=== PATIENT | male | born 1945 | race Caucasian/White ===

== ENCOUNTER 2020-12-03 10:18 | Inpatient (IN) | payer OTHER ==
[2020-12-03 11:02] LABS: Urine Blood 1+ (Negative); Urine Glucose Trace (Negative); Urine Protein Negative (Negative)
[2020-12-03] MEDS ORDERED: VANCOMYCIN 1 GM/VIAL ONE (11:11)
[2020-12-03] MEDS ORDERED: NA CHLORIDE 0.9% 250 ML ONE (11:11)
[2020-12-03] MEDS ORDERED: NA CHLORIDE 0.9% 3,000 ML ONE (11:11)
[2020-12-03] MEDS ORDERED: NA CHLORIDE 0.9% 100 ML ONE ×2 (11:11→22:29)
[2020-12-03] MEDS ORDERED: CEFEPIME 1 GM/VIAL ONE (11:11)
[2020-12-03] MEDS ORDERED: FAMOTIDINE 20 MG/2 ML VIAL IV ONE (11:11)
--- NOTE | 2020-12-03 11:14 | ER ---
Nurse's Notes [facility] Name: Alfredo Lee Age: 74 yrs Sex: Male : 1945 Arrival Date: 12/03/2020 Time: 10:19 Bed 6 Private MD: Diagnosis: Chronic atrial fibrillation-in RVR;Cellulitis and acute lymphangitis of other parts of limb-LEFT LOWER EXTREMITY;Weakness;Altered mental status, unspecified;Sepsis, unspecified organism Presentation: 12/03 10:26 Chief complaint: EMS states: "Had an ultrasound on the left leg last week it was tw5 negative for any clotting. Over the past week it has gotten worse. family reports that he has become a little confused. ". Coronavirus screen: Vaccine status: Patient reports receiving the 2nd dose of the covid vaccine. Date April 25, 2020. Ebola Screen: Patient negative for fever greater than or equal to 101.5 degrees Fahrenheit, and additional compatible Ebola Virus Disease symptoms Patient denies exposure to infectious person. Patient denies travel to an Ebola-affected area in the 21 days before illness onset. Initial Sepsis Screen: Does the patient meet any 2 criteria? RR > 20 per min. Altered Mental Status. HR > 90 bpm. Yes Does the patient have a suspected source of infection? Yes: Skin breakdown/wound. Risk Assessment: Do you want to hurt yourself or someone else? Patient reports no desire to harm self or others. Onset of symptoms was December 03, 2020. 10:26 Method Of Arrival: EMS: [facility] tw5 10:26 Acuity: VICKY 3 tw5 10:30 Acuity: VICKY 2 iw Triage Assessment: 10:30 General: Appears uncomfortable, ill, Behavior is cooperative. Pain: Complains of pain tw5 in left che Pain currently is 7 out of 10 on a pain scale. Historical: - Allergies: 10:30 No Known Allergies; tw5 - Home Meds: 10:30 Xarelto 15 mg oral tab 1 tab once daily [Active]; metoprolol tartrate 75 mg Oral tab 1 tw5 tab 2 times per day [Active]; - PMHx: 10:30 Diabetes mellitus; Atrial fibrillation; tw5 - PSHx: 10:30 Carotid endarterectomy; Coronary Angioplasty; Coronary artery bypass graft; tw5 - Social history:: Smoking status: Patient denies any tobacco usage or history of. - Family history:: not pertinent. Screenin:38 Abuse screen: Denies threats or abuse. Denies injuries from another. Nutritional tw5 screening: No deficits noted. Tuberculosis screening: No symptoms or risk factors identified. Fall Risk Fall in past 12 months (25 points). Secondary diagnosis (15 points) IV access (20 points). Ambulatory Aid- None/Bed Rest/Nurse Assist (0 pts). Gait- Impaired (20 pts.). Mental Status- Overestimates/Forgets Limitations (15 pts.). Assessment: 10:39 General: Appears uncomfortable, ill, obese, Behavior is cooperative, appropriate for tw5 age. Neuro: Level of Consciousness is awake, alert, Oriented to person, place, time, situation. Cardiovascular: Reports None Heart tones S1 S2 Rhythm is atrial fibrillation with rapid ventricular response. Respiratory: Airway is patent Trachea midline Respiratory effort is shallow, Respiratory pattern is tachypnea. GI: Reports vomiting. 11:00 Reassessment: Patient appears in no apparent distress at this time. tw5 Vital Signs: 10:26 BP 152 / 103; Pulse 138; Resp 24; Temp 98.4(TE); Weight 114.76 kg; Height 6 ft. 3 in. tw5 (190.50 cm); Pain 7/10; 10:40 BP 114 / 81; Pulse 134; Resp 26; Pulse Ox 92% on R/A; Pain 7/10; tw5 11:00 BP 150 / 102; Pulse 128; Resp 17; Pulse Ox 98% on R/A; Pain 7/10; tw5 12:16 BP 124 / 88; Pulse 111; Resp 18; Pulse Ox 95% on R/A; Pain 7/10; tw5 12:33 BP 136 / 97; Pulse 110; Resp 21; Pulse Ox 96% on R/A; Pain 7/10; tw5 10:26 Body Mass Index 31.62 (114.76 kg, 190.50 cm) tw5 10:26 left leg tw5 ED Course: 10:19 Patient arrived in ED. tw5 10:19 Mando Yoo MD is Attending Physician. [facility] 10:22 Nicole Barry is Primary Nurse. tw5 10:29 Triage completed. tw5 10:30 Arm band placed on left wrist. tw5 10:34 Patient has correct armband on for positive identification. Placed in gown. Bed in low mh5 position. Call light in reach. Side rails up X2. Adult w/ patient. Warm blanket given. test developer on. Pulse ox on. NIBP on. 10:34 Initial lab(s) drawn, by ED staff, sent to lab. EKG done, COVID swab sent to lab. mh5 10:35 Awaiting lab results. tw5 10:35 CBC with Automated Diff Sent. mh5 10:35 Liver (Hepatic) Function Sent. mh5 10:35 Basic Metabolic Panel Sent. mh5 10:35 TSH Sent. mh5 10:35 Inserted saline lock: 20 gauge in right hand, using aseptic technique. tw5 10:36 TSH Sent. mh5 10:36 Amylase, Serum Sent. mh5 10:36 Blood Culture Adult (2) Sent. mh5 10:36 CPK Sent. 5 10:36 Ckmb Sent. mh5 10:36 Lactate Sent. mh5 10:36 Lipase Sent. mh5 10:36 Procalcitonin Sent. mh5 10:36 Ptt, Activated Sent. mh5 10:36 Urine Microscopic Only Sent. mh5 10:36 Basic Metabolic Panel Sent. mh5 10:36 CBC with Diff Sent. mh5 10:36 LFT's Sent. mh5 10:37 Magnesium Sent. mh5 10:37 NT PRO-BNP Sent. mh5 10:37 PT-INR Sent. mh5 10:37 Troponin (emerg Dept Use Only) Sent. mh5 10:41 Amylase, Serum Sent. tw5 10:42 CBC with Automated Diff Sent. tw5 10:54 XRAY Chest (1 view) In Process Unspecified. EDMS 11:11 Varun Redding MD is Hospitalizing Provider. aidee 11:11 TSH Sent. tw5 11:11 Ptt, Activated Sent. tw5 11:12 Procalcitonin Sent. tw5 11:12 Lipase Sent. tw5 11:12 Lactate Sent. tw5 11:12 Ckmb Sent. tw5 11:12 CPK Sent. tw5 11:12 Amylase, Serum Sent. tw5 11:12 Inserted saline lock: 20 gauge in left hand, using aseptic technique. tw5 11:23 Sriram Mcadams is Hospitalizing Provider. aidee 11:50 CT Head Brain wo Cont In Process Unspecified. EDMS 12:04 Patient moved back from [place]. tw5 12:52 No provider procedures requiring assistance completed. Patient admitted, IV remains in tw5 place. Administered Medications: 11:03 Drug: Pepcid (famotidine) 20 mg Route: IVP; Site: right hand; tw5 12:51 Follow up: Response: No adverse reaction tw5 11:05 Drug: Cefepime 2 grams Route: IVPB; Rate: 200 ml/hr; Infused Over: 30 mins; Site: right tw5 hand; 12:51 Follow up: Response: No adverse reaction; IV Status: Completed infusion tw5 11:06 Drug: vancoMYCIN 1 grams Route: IVPB; Infused Over: 2 hrs; Site: left hand; tw5 12:51 Follow up: IV Status: Infusion continued upon admission tw5 11:12 Drug: NS 0.9% (30 ml/kg) 30 ml/kg Route: IV; Rate: bolus; Site: right hand; tw5 12:51 Follow up: IV Status: Infusion continued upon admission tw5 12:07 Drug: Lopressor (metoprolol TARTRATE) 50 mg Route: PO; tw5 12:51 Follow up: Response: No adverse reaction tw5 12:11 Drug: Digoxin 0.5 mg Route: IVP; Site: right hand; tw5 12:50 Follow up: Response: No adverse reaction tw5 12:14 Drug: Lopressor (metoprolol) 2.5 mg Route: IVP; Site: right hand; tw5 12:50 Follow up: Response: No adverse reaction tw5 12:33 Drug: Lopressor (metoprolol) 2.5 mg Route: IVP; Site: right hand; tw5 12:50 Follow up: Response: No adverse reaction tw5 Outcome: 11:13 Decision to Hospitalize by Provider. aidee 12:52 Admitted to Med/surg accompanied by tech, family with patient, via stretcher, room 228, tw5 with chart, Report called to LESLIE RICO 12:52 Condition: stable 12:52 Instructed on the need for admit. 12:58 Patient left the ED. tw5 Signatures: Dispatcher [employer] EDMando Whittaker MD MD cha Williams, Irene, RN RN iw Martinez, [facility] Nicole Barry tw5 Corrections: (The following items were deleted from the chart) 11:04 10:35 CORONAVIRUS+MR.LAB.KINGSLEY drawn and sent. mh5 EDMS 11:04 10:42 CORONAVIRUS+MR.LAB.BRJuan Pablo drawn and sent. tw5 EDMS
--- NOTE | 2020-12-03 11:14 | RAD REPORT ---
EXAM DESCRIPTION: RAD - Chest Single View - 12/03/2020 10:55 am CLINICAL HISTORY: COUGH Chest pain. COMPARISON: No comparisons FINDINGS: Portable technique limits examination quality. Mild bilateral interstitial prominence could represent interstitial pulmonary edema or viral infectio n. The heart is significantly enlarged in size. Moderate hiatal hernia.
--- NOTE | 2020-12-03 11:14 | EDPHYS ---
Physician Documentation [facility] Name: Alfredo Lee Age: 74 yrs Sex: Male : 1945 Arrival Date: 12/03/2020 Time: 10:19 Bed 6 Private MD: ED Physician Mando Yoo HPI: 12/03 11:06 This 74 yrs old Male presents to ER via EMS with complaints of weakness, red aidee leg and confusion. 11:07 The patient presents with decreased range of motion, pain, swelling, tenderness. The aidee complaints affect the lateral aspect of left calf, left lateral ankle, left calf, left Achilles, medial aspect of left calf, left medial ankle, left che and anterior aspect of left ankle. Context: The problem was sustained at an unknown site. Onset: The symptoms/episode began/occurred 2 day(s) ago. Modifying factors: The symptoms are alleviated by nothing. the symptoms are aggravated by nothing. Associated signs and symptoms: Pertinent positives: calf tenderness, fever, swelling, warmth, of the lateral aspect of left calf, left lateral ankle, left calf, left Achilles, medial aspect of left calf, left medial ankle, left che and anterior aspect of left ankle. Severity of symptoms: At their worst the symptoms were moderate, in the emergency department the symptoms are unchanged. The patient has experienced similar episodes in the past, a few times. Historical: - Allergies: 10:30 No Known Allergies; tw5 - Home Meds: 10:30 Xarelto 15 mg oral tab 1 tab once daily [Active]; metoprolol tartrate 75 mg Oral tab 1 tw5 tab 2 times per day [Active]; - PMHx: 10:30 Diabetes mellitus; Atrial fibrillation; tw5 - PSHx: 10:30 Carotid endarterectomy; Coronary Angioplasty; Coronary artery bypass graft; tw5 - Social history:: Smoking status: Patient denies any tobacco usage or history of. - Family history:: not pertinent. ROS: 11:07 Constitutional: Negative for fever, chills, and weight loss, Eyes: Negative for injury, aidee pain, redness, and discharge, ENT: Negative for injury, pain, and discharge, Neck: Negative for injury, pain, and swelling, Respiratory: Negative for shortness of breath, cough, wheezing, and pleuritic chest pain, Abdomen/GI: Negative for abdominal pain, nausea, vomiting, diarrhea, and constipation, Back: Negative for injury and pain, : Negative for injury, bleeding, discharge, and swelling, Psych: Negative for depression, anxiety, suicide ideation, homicidal ideation, and hallucinations, Allergy/Immunology: Negative for hives, rash, and allergies, Endocrine: Negative for neck swelling, polydipsia, polyuria, polyphagia, and marked weight changes, Hematologic/Lymphatic: Negative for swollen nodes, abnormal bleeding, and unusual bruising. 11:07 Cardiovascular: Positive for palpitations. 11:07 MS/extremity: Positive for decreased range of motion, erythema, pain, swelling, tenderness, of the left leg. 11:07 Neuro: Positive for altered mental status, weakness. Exam: 11:07 Head/Face: Normocephalic, atraumatic. Eyes: Pupils equal round and reactive to light, aidee extra-ocular motions intact. Lids and lashes normal. Conjunctiva and sclera are non-icteric and not injected. Cornea within normal limits. Periorbital areas with no swelling, redness, or edema. ENT: Nares patent. No nasal discharge, no septal abnormalities noted. Tympanic membranes are normal and external auditory canals are clear. Oropharynx with no redness, swelling, or masses, exudates, or evidence of obstruction, uvula midline. Mucous membranes moist. Neck: Trachea midline, no thyromegaly or masses palpated, and no cervical lymphadenopathy. Supple, full range of motion without nuchal rigidity, or vertebral point tenderness. No Meningismus. Chest/axilla: Normal chest wall appearance and motion. Nontender with no deformity. No lesions are appreciated. Respiratory: Lungs have equal breath sounds bilaterally, clear to auscultation and percussion. No rales, rhonchi or wheezes noted. No increased work of breathing, no retractions or nasal flaring. Abdomen/GI: Soft, non-tender, with normal bowel sounds. No distension or tympany. No guarding or rebound. No evidence of tenderness throughout. Back: No spinal tenderness. No costovertebral tenderness. Full range of motion. Male : Normal genitalia with no discharge or lesions. Neuro: Awake and alert, GCS 15, oriented to person, place, time, and situation. Cranial nerves II-XII grossly intact. Motor strength 5/5 in all extremities. Sensory grossly intact. Cerebellar exam normal. Normal gait. Psych: Awake, alert, with orientation to person, place and time. Behavior, mood, and affect are within normal limits. 11:07 Constitutional: The patient appears febrile, in obvious distress, mildly distressed. 11:07 ECG was reviewed by the Attending Physician. Vital Signs: 10:26 BP 152 / 103; Pulse 138; Resp 24; Temp 98.4(TE); Weight 114.76 kg; Height 6 ft. 3 in. tw5 (190.50 cm); Pain 7/10; 10:40 BP 114 / 81; Pulse 134; Resp 26; Pulse Ox 92% on R/A; Pain 7/10; tw5 11:00 BP 150 / 102; Pulse 128; Resp 17; Pulse Ox 98% on R/A; Pain 7/10; tw5 12:16 BP 124 / 88; Pulse 111; Resp 18; Pulse Ox 95% on R/A; Pain 7/10; tw5 12:33 BP 136 / 97; Pulse 110; Resp 21; Pulse Ox 96% on R/A; Pain 7/10; tw5 10:26 Body Mass Index 31.62 (114.76 kg, 190.50 cm) tw5 10:26 left leg tw5 MDM: 10:19 Patient medically screened. aidee 11:10 Differential diagnosis: contusion, abrasion, tendonitis. Data reviewed: vital signs, [facility] nurses notes, lab test result(s), EKG, radiologic studies, CT scan, plain films. Data interpreted: clinical dietitian: rate is 128 beats/min, rhythm is atrial fibrillation, Pulse oximetry: is not applicable for this patient encounter. on room air is 98 %. Test interpretation: by ED physician or midlevel provider: ECG, plain radiologic studies. Counseling: I had a detailed discussion with the patient and/or guardian regarding: the historical points, exam findings, and any diagnostic results supporting the discharge/admit diagnosis, lab results, radiology results, the need for further work-up and treatment in the hospital. 12/03 10:32 Order name: Basic Metabolic Panel [facility] 12/03 10:32 Order name: CBC with Diff [facility] 12/03 10:32 Order name: LFT's [facility] 12/03 10:32 Order name: Magnesium [facility] 12/03 10:32 Order name: NT PRO-BNP [facility] 12/03 10:32 Order name: PT-INR; Complete Time: 11:56 [facility] 12/03 10:32 Order name: Troponin (emerg Dept Use Only) [facility] 12/03 10:32 Order name: Amylase, Serum [facility] 12/03 10:32 Order name: Blood Culture Adult (2) [facility] 12/03 10:32 Order name: CPK [facility] 12/03 10:32 Order name: Ckmb [facility] 12/03 10:32 Order name: Lactate; Complete Time: 11:43 [facility] 12/03 10:32 Order name: Lipase [facility] 12/03 10:32 Order name: Procalcitonin; Complete Time: 12:37 [facility] 12/03 10:32 Order name: XRAY Chest (1 view); Complete Time: 11:30 [facility] 12/03 10:32 Order name: Ptt, Activated; Complete Time: 11:56 [facility] 12/03 10:32 Order name: Urine Microscopic Only; Complete Time: 12:37 [facility] 12/03 10:32 Order name: TSH [facility] 12/03 10:32 Order name: Basic Metabolic Panel [facility] 12/03 10:32 Order name: CBC with Automated Diff; Complete Time: 11:56 [facility] 12/03 10:32 Order name: Liver (Hepatic) Function [facility] 12/03 10:37 Order name: Glucose, Ancillary Testing; Complete Time: 11:04 [facility] 12/03 11:01 Order name: Urine Dipstick-Ancillary; Complete Time: 11:04 [facility] 12/03 11:06 Order name: CT Head Brain wo Cont; Complete Time: 12:37 [facility] 12/03 11:43 Order name: COVID-19/FLU A+B; Complete Time: 11:56 [facility] 12/03 10:32 Order name: EKG; Complete Time: 10:33 [facility] 12/03 10:32 Order name: Cardiac monitoring; Complete Time: 10:33 [facility] 12/03 10:32 Order name: EKG - Nurse/Tech; Complete Time: 10:33 [facility] 12/03 10:32 Order name: IV Saline Lock; Complete Time: 10:33 [facility] 12/03 10:32 Order name: Labs collected and sent; Complete Time: 10:37 [facility] 12/03 10:32 Order name: O2 Per Protocol; Complete Time: 10:33 [facility] 12/03 10:32 Order name: O2 Sat Monitoring; Complete Time: 10:33 [facility] 12/03 10:32 Order name: Accucheck; Complete Time: 10:33 [facility] 12/03 10:32 Order name: IV Saline Lock - Large Bore; Complete Time: :33 aidee 12/03 10:32 Order name: Urine Dipstick-Ancillary (obtain specimen); Complete Time: 11:02 [facility] EC: Rate is 132 beats/min. Rhythm is irregularly irregular. QRS [place] is Normal. IA interval aidee is normal. QRS interval is normal. QT interval is normal. No Q waves. T waves are Normal. No ST changes noted. Clinical impression: Atrial Fibrillation. Interpreted by me. Reviewed by me. Administered Medications: 11:03 Drug: Pepcid (famotidine) 20 mg Route: IVP; Site: right hand; tw5 12:51 Follow up: Response: No adverse reaction tw5 11:05 Drug: Cefepime 2 grams Route: IVPB; Rate: 200 ml/hr; Infused Over: 30 mins; Site: right tw5 hand; 12:51 Follow up: Response: No adverse reaction; IV Status: Completed infusion tw5 11:06 Drug: vancoMYCIN 1 grams Route: IVPB; Infused Over: 2 hrs; Site: left hand; tw5 12:51 Follow up: IV Status: Infusion continued upon admission tw5 11:12 Drug: NS 0.9% (30 ml/kg) 30 ml/kg Route: IV; Rate: bolus; Site: right hand; tw5 12:51 Follow up: IV Status: Infusion continued upon admission tw5 12:07 Drug: Lopressor (metoprolol TARTRATE) 50 mg Route: PO; tw5 12:51 Follow up: Response: No adverse reaction tw5 12:11 Drug: Digoxin 0.5 mg Route: IVP; Site: right hand; tw5 12:50 Follow up: Response: No adverse reaction tw5 12:14 Drug: Lopressor (metoprolol) 2.5 mg Route: IVP; Site: right hand; tw5 12:50 Follow up: Response: No adverse reaction tw5 12:33 Drug: Lopressor (metoprolol) 2.5 mg Route: IVP; Site: right hand; tw5 12:50 Follow up: Response: No adverse reaction tw5 Disposition Summary: 12/03/20 11:13 Hospitalization Ordered Hospitalization Status: Inpatient Admission aidee Location: Telemetry/MedSurg (Inpatient) aidee Condition: Fair aidee Problem: new aidee Symptoms: have improved aidee Bed/Room Type: Standard aidee Provider: Sriram Mcadams(12/03/20 11:24) aidee Room Assignment: 228(12/03/20 12:12) dw Diagnosis - Chronic atrial fibrillation - in RVR aidee - Cellulitis and acute lymphangitis of other parts of limb - LEFT LOWER EXTREMITY aidee - Weakness aidee - Altered mental status, unspecified aidee - Sepsis, unspecified organism aidee Forms: - Medication Reconciliation Form aidee - SBAR form aidee Signatures: Dispatcher [employer] EDMS Lucretia Larkin RN RN Mando Cohn MD MD cha Wood, Tiffany tw5 Corrections: (The following items were deleted from the chart) 11:04 10:33 CORONAVIRUS+MR.LAB.BRZ ordered. EDMS EDMS 11:24 11:13 Varun Redding cha aidee 11:39 11:04 Extrem Venous W Compression Meño+US.RAD.BRZ ordered. EDMS EDMS 12:12 11:13 aidee dw
[2020-12-03 11:34] LABS: Protime INR 1.72
[2020-12-03 11:35] LABS: Absolute Lymphocytes (CBC) 0.2 K/uL (0.7-4.9); Lymphocytes % 1.2 % (15.3-44.8); RBC Red Blood Cell Count 5.37 M/uL (4.33-5.43)
[2020-12-03 11:42] LABS: Basophils % 0.2 % (0-1.3); Hematocrit 45.1 % (39.6-49.0); MPV 9.5 fL (7.6-11.3)
[2020-12-03 11:43] LABS: SARS-COV-2 RT PCR NEGATIVE (NEGATIVE)
--- NOTE | 2020-12-03 12:10 | RAD REPORT ---
EXAM DESCRIPTION: CT - Head Brain Wo Cont - 12/03/2020 11:50 am CLINICAL HISTORY: DIZZINESS Headache, drowsiness COMPARISON: No comparisons TECHNIQUE: All CT scans are performed using dose optimization technique as appropriate and may inclu de automated exposure control or mA/KV adjustment according to patient size. FINDINGS: No intracranial hemorrhage, hydrocephalus or extra-axial fluid collection.Mild generalized brain atrophy is seen with mild periventricular and deep white matter chronic microvascular ischemic changes.No areas of brain edema or evidence of midline shift. The paranasal sinuses and mastoids are essentially clear. The calvarium is intact. IMPRESSION: No acute intracranial abnormality.
[2020-12-03 12:16] LABS: Urine Bacteria <20 /HPF (NONE SEEN); Urine RBC <5 /HPF (NONE SEEN)
[2020-12-03] MEDS ORDERED: DIGOXIN 0.25 MG/ML AMP ONE (12:27)
[2020-12-03] MEDS ORDERED: METOPROLOL TAR 50 MG TAB ONE (12:27)
[2020-12-03] MEDS ORDERED: METOPROLOL TARTRATE 5 MG/5 ML INJ IV ONE (12:27)
[2020-12-03] MEDS ORDERED: ONDANSETRON 4 MG/2 ML VIAL IV PRN (13:16)
[2020-12-03] MEDS ORDERED: ACETAMINOPHEN 500 MG TAB PO PRN (13:16)
[2020-12-03] MEDS ORDERED: VANCOMYCIN/NS 1 gm 1 GM/250 ML BAG IVPB SCH (13:16)
[2020-12-03] MEDS: NA CHLORIDE 0.9% 1,000 ML IV SCH ×2 (13:19→23:26)
[2020-12-03 13:30] VITALS: BMI 32.0
[2020-12-03 14:35] LABS: ALT/SGPT 26 U/L (12-78); AST/SGOT 15 U/L (15-37); Albumin 3.6 g/dL (3.4-5.0); Alkaline Phosphatase 53 U/L (45-117); Amylase 34 U/L (25-115); BUN Blood Urea Nitrogen 19 mg/dL (7-18); Bicarbonate 25 mmol/L (21-32); Bilirubin Direct 0.3 mg/dL (0-0.2); Bilirubin Total 1.3 mg/dL (0.2-1.0); Creatine Phosphokinase 119 U/L (39-308); Glucose Level 219 mg/dL (74-106); Lipase 74 U/L (73-393); Magnesium 1.6 mg/dL (1.8-2.4); NT PRO-BNP 1369 pg/mL (<450); Potassium 3.5 mmol/L (3.5-5.1); Protein, Total 6.6 g/dL (6.4-8.2); Sodium Level 145 mmol/L (136-145); Troponin (Emerg Dept Use Only) < 0.02 ng/mL (0.0-0.045)
[2020-12-03 14:39] LABS: CKMB Creatine Kinase MB 2.7 ng/mL (1.0-3.6)
--- NOTE | 2020-12-03 14:46 | P.PN ---
Subjective Date of Service: 12/03/20 Chief Complaint: Left leg swelling and redness, confusion 74-year-old gentleman with a history of chronic atrial fibrillation, chronic kidney disease and diabetes presented to the emergency department due to sudden onset of redness of the left leg which rapidly worsened over a period of 2 days. He developed confusion. No fever. Patient is vacationing with his and were at the beach. Spouse mentioned patient did not get into the ocean. He has small wound on the left che and she does not know how patient got the wound. Spouse reports patient has been worked up for immunosuppression disease and recently saw a law firm consultant. He developed hematoma involving his left gluteal area and thigh earlyn this year which lasted for about a week. Lactic acid elevated, he has mild leukocytosis, creatinine 1.4. Blood pressure is stable in the ED. Patient met criteria for sepsis with tachycardia, leukocytosis, elevated lactic acid and altered mental status. Sepsis protocol initiated. Patient admitted for further management. Review of Systems Other: No reported diarrhea or nausea or vomiting. No reported abdominal pain. Patient denies any chest pain or shortness of breath. Except as documented, all other systems reviewed and negative. Physical Examination - Vital Signs Temperature: 98.4 F Blood Pressure: 136/97 Pulse: 110 Respirations: 21 - Physical Exam General: Mild distress, Confused, Obese, Other (Irritable) HEENT: Atraumatic, Normocephalic, PERRLA, Mucous membr. moist/pink, EOMI, Sclerae nonicteric Neck: Supple, JVD not distended, No Thyromegaly Respiratory: Clear to auscultation bilaterally, Normal air movement Cardiovascular: Normal S1 S2, No murmurs, Edema (Left leg), Irregular heart rate/rhythm Capillary refill: <2 Seconds Gastrointestinal: Normal bowel sounds, Soft and benign, Non-distended, No tenderness Musculoskeletal: Swelling (Left leg) Integumentary: Erythema (Left leg swollen and erythema from the foot to the knee, open wound with serosanguineous discharge.) Neurological: Normal strength at 5/5 x4 extr, Cranial nerves 3-12 intact, Other (Confused) Lymphatics: No axilla or inguinal lymphadenopathy - Studies Laboratory Data (last 24 hrs) 12/03/20 10:36: PT 19.9 H, INR 1.72, APTT 28.1 12/03/20 10:36: WBC 12.70 H, Hgb 14.3, Hct 45.1, Plt Count 131 L 12/03/20 10:36: Sodium 145, Potassium 3.5, BUN 19 H, Creatinine 1.40 H, Glucose 219 H, Magnesium 1.6 L, Total Bilirubin 1.3 H, AST 15, ALT 26, Alkaline Phosphatase 53, Amylase 34, Lipase 74 Assessment And Plan - Current Problems (Diagnosis) (1) Sepsis Current Visit: Yes Status: Acute (2) Cellulitis of lower extremity Current Visit: Yes Status: Acute (3) Infected wound Current Visit: Yes Status: Acute (4) Diabetes mellitus type 2 in obese Current Visit: Yes Status: Acute (5) Hypertension Current Visit: Yes Status: Acute (6) Metabolic encephalopathy Current Visit: Yes Status: Acute (7) Chronic kidney disease, stage 3 Current Visit: Yes Status: Acute (8) Thrombocytopenia Current Visit: Yes Status: Acute
[2020-12-03] MEDS: HYDROCODONE/APAP 5/325 MG TAB PO PRN ×2 (14:58→21:42)
--- NOTE | 2020-12-03 15:05 | P.HP ---
Patient History Date of Service: 12/03/20 Reason for admission: Left leg swelling and redness, confusion History of Present Illness: 74-year-old gentleman with a history of chronic atrial fibrillation, chronic kidney disease and diabetes presented to the emergency department due to sudden onset of redness of the left leg which rapidly worsened over a period of 2 days. He developed confusion. No fever. Patient is vacationing with his and were at the beach. Spouse mentioned patient did not get into the ocean. He has small wound on the left che and she does not know how patient got the wound. Spouse reports patient has been worked up for immunosuppression disease and recently saw a journeyman lineman. He developed hematoma involving his left gluteal area and thigh earlyn this year which lasted for about a week. Lactic acid elevated, he has mild leukocytosis, creatinine 1.4. Blood pressure is stable in the ED. Patient met criteria for sepsis with tachycardia, leukocytosis, elevated lactic acid and altered mental status. Sepsis protocol initiated. Patient admitted for further management. Allergies No Known Allergies Allergy (Unverified 12/03/20 13:16) Home Medications: Allopurinol 100 mg PO DAILY 12/03/20 Atorvastatin Calcium 10 mg PO BEDTIME 12/03/20 Cholecalciferol (Vitamin D3) [Vitamin D3] 2,000 unit PO DAILY 12/03/20 Metoprolol Tartrate 75 mg PO BID 12/03/20 Rivaroxaban [Xarelto] 15 mg PO BEDTIME 12/03/20 Tamsulosin [Flomax*] 1 cap PO BID 12/03/20 glipiZIDE [Glucotrol Xl] 2.5 mg PO DAILY 12/03/20 - Past Medical/Surgical History Has patient received pneumonia vaccine in the past: Yes Diabetic: Yes -: NIDDM. -: HTN -: AFIB. -: Chronic kidney disease -: CABG -: Carotid endarterectomy. -: Tephlon implant - Family History Family History: Reviewed- Non-Contributory - Social History Smoking Status: Never smoker Alcohol use: Yes CD- Drugs: No Caffeine use: No Place of Residence: Home Review of Systems Other: No reported diarrhea or nausea or vomiting. No reported abdominal pain. Patient denies any chest pain or shortness of breath. Except as documented, all other systems reviewed and negative. Physical Examination - Vital Signs Temperature: 98.4 F Blood Pressure: 136/97 Pulse: 110 Respirations: 21 - Physical Exam Other Physical/Emotional Findings: General: Mild distress, Confused, Obese, Other (Irritable). HEENT: Atraumatic, Normocephalic, PERRLA, Mucous membr. moist/pink, EOMI, Sclerae nonicteric. Neck: Supple, JVD not distended, No Thyromegaly. Respiratory: Clear to auscultation bilaterally, Normal air movement. Cardiovascular: Normal S1 S2, No murmurs, Edema (Left leg), Irregular heart rate/rhythm. Capillary refill: <2 Seconds. Gastrointestinal: Normal bowel sounds, Soft and benign, Non-distended, No tenderness. Musculoskeletal: Swelling (Left leg). Integumentary: Erythema (Left leg swollen and erythema from the foot to the knee, open wound with serosanguineous discharge.). Neurological: Normal strength at 5/5 x4 extr, Cranial nerves 3-12 intact, Other (Confused). Lymphatics: No axilla or inguinal lymphadenopathy - Studies Laboratory Data (last 24 hrs) 12/03/20 10:36: PT 19.9 H, INR 1.72, APTT 28.1 12/03/20 10:36: WBC 12.70 H, Hgb 14.3, Hct 45.1, Plt Count 131 L 12/03/20 10:36: Sodium 145, Potassium 3.5, BUN 19 H, Creatinine 1.40 H, Glucose 219 H, Magnesium 1.6 L, Total Bilirubin 1.3 H, AST 15, ALT 26, Alkaline Phosphatase 53, Amylase 34, Lipase 74 Assessment and Plan - Problems (Diagnosis) (1) Sepsis Current Visit: Yes Status: Acute (2) Cellulitis of lower extremity Current Visit: Yes Status: Acute (3) Infected wound Current Visit: Yes Status: Acute (4) Diabetes mellitus type 2 in obese Current Visit: Yes Status: Acute (5) Hypertension Current Visit: Yes Status: Acute (6) Metabolic encephalopathy Current Visit: Yes Status: Acute (7) Chronic kidney disease, stage 3 Current Visit: Yes Status: Acute (8) Thrombocytopenia Current Visit: Yes Status: Acute - Plan - Physical Exam General: Mild distress, Confused, Obese, Other (Irritable) HEENT: Atraumatic, Normocephalic, PERRLA, Mucous membr. moist/pink, EOMI, Sclerae nonicteric Neck: Supple, JVD not distended, No Thyromegaly Respiratory: Clear to auscultation bilaterally, Normal air movement Cardiovascular: Normal S1 S2, No murmurs, Edema (Left leg), Irregular heart rate/rhythm Capillary refill: <2 Seconds Gastrointestinal: Normal bowel sounds, Soft and benign, Non-distended, No tenderness Musculoskeletal: Swelling (Left leg) Integumentary: Erythema (Left leg swollen and erythema from the foot to the knee, open wound with serosanguineous discharge.) Neurological: Normal strength at 5/5 x4 extr, Cranial nerves 3-12 intact, Other (Confused) Lymphatics: No axilla or inguinal lymphadenopathy Plan: Sepsis/cellulitis of lower extremity/infected wound/altered mental status: * Sepsis likely secondary to cellulitis. * Sepsis protocol initiated * IV normal saline bolus and maintainance * Aggressive antibiotics-IV cefepime and vancomycin * Serial lactate * Follow blood cultures * UA is negative. * Neuro checks * Monitor vitals. Chronic atrial fibrillation * Patient given digoxin in the ED. * Was start low dose metoprolol * IV hydration. * Patient with thrombocytopenia. * Will hold Xarelto for now because I am not able to differentiate the cellulitis from hematoma. Chronic kidney disease stage 3 * IV hydration * Monitor renal function Thrombocytopenia * No anticoagulation for now. * SCD for DVT prophylaxis. Diabetes mellitus type 2 * Hold home medications due to poor oral intake. * Manage blood sugar with insulin sliding scale - Advance Directives Does patient have a Living Will: No Does patient have a Durable POA for Healthcare: No
[2020-12-03] MEDS ORDERED: VANCOMYCIN/NS 1 gm 1 GM/250 ML BAG IVPB ONE (15:15)
[2020-12-03] MEDS: INSULIN -REGULAR HUMAN 50 UNIT/0.5 ML ML SQ SCH ×2 (15:41→21:42)
--- NOTE | 2020-12-03 16:33 | P.INFCA ---
Sepsis Focused Assessment - Focused Assessment Complete? Sepsis Focused Assessment Completed?: Yes - Sepsis Screen Result Severe Sepsis: Negative Septic Shock: Negative - Vital Signs Reviewed: Yes Respiratory Rate: 21 - Examination Date exam was performed: 12/03/20 Time exam was performed: 15:35 Heart: Irregular rhythm, S1, S2 Lungs: Clear bilaterally Capillary refill: <2 Seconds Skin examination: Normal turgor
[2020-12-03] MEDS: METOPROLOL TAR 25 MG TAB PO SCH (17:01)
[2020-12-03] MEDS ORDERED: METOPROLOL TAR 25 MG TAB PO SCH (18:00)
[2020-12-03] MEDS ORDERED: CEFEPIME 1 GM/VIAL IV SCH (21:00)
[2020-12-03] MEDS: ATORVASTATIN 10 MG TAB PO SCH (21:42)
[2020-12-03] MEDS: TAMSULOSIN 0.4 MG SR CAP PO SCH (21:42)
[2020-12-03] MEDS: CEFEPIME 1 GM in NA CHLORIDE 0.9% 100 ML IV SCH (23:25)
[2020-12-04 05:11] LABS: Absolute Lymphocytes (CBC) 0.6 K/uL (0.7-4.9); Basophils % 0.4 % (0-1.3); Hematocrit 39.5 % (39.6-49.0); Lymphocytes % 4.8 % (15.3-44.8); MPV 8.6 fL (7.6-11.3); RBC Red Blood Cell Count 4.69 M/uL (4.33-5.43)
[2020-12-04 05:12] LABS: Protime INR 1.76
[2020-12-04 05:26] LABS: Magnesium 1.8 mg/dL (1.8-2.4); Phosphorus 2.4 mg/dL (2.5-4.9); Potassium 3.8 mmol/L (3.5-5.1)
[2020-12-04] MEDS: HYDROCODONE/APAP 5/325 MG TAB PO PRN ×2 (05:29→09:49)
[2020-12-04] MEDS: METOPROLOL TAR 25 MG TAB PO SCH ×2 (05:31→18:00)
[2020-12-04 06:07] LABS: Blood Morphology Comment NOT SEEN (NOT SEEN); Platelet Estimate DECR
[2020-12-04] MEDS: INSULIN -REGULAR HUMAN 50 UNIT/0.5 ML ML SQ SCH ×4 (07:30→21:56)
[2020-12-04] MEDS: CEFEPIME 1 GM in NA CHLORIDE 0.9% 100 ML IV SCH ×2 (09:37→21:54)
[2020-12-04] MEDS: NA CHLORIDE 0.9% 1,000 ML IV SCH ×2 (09:40→21:52)
[2020-12-04] MEDS: ENOXAPARIN 40 MG/0.4 ML SQ SCH (09:43)
[2020-12-04] MEDS: allopurinoL 100 MG TAB PO SCH (09:46)
[2020-12-04] MEDS: VITAMIN D 1000 UNIT TAB PO SCH (09:46)
[2020-12-04] MEDS: TAMSULOSIN 0.4 MG SR CAP PO SCH ×2 (09:46→22:01)
[2020-12-04] MEDS: VANCOMYCIN 2 GM in NA CHLORIDE 0.9% 500 ML IVPB SCH (15:00)
--- NOTE | 2020-12-04 15:06 | P.PN ---
Subjective Date of Service: 12/04/20 Chief Complaint: Left leg swelling and redness, confusion Patient reports feeling much better today. His left leg is still swollen and very the erythematous but states the pain is better. No recorded fever. Physical Examination - Vital Signs Temperature: 97.5 F Blood Pressure: 131/94 Pulse: 108 Respirations: 18 Pulse Ox (%): 94 - Physical Exam General: Alert, In no apparent distress, Oriented x3 HEENT: Atraumatic, Mucous membr. moist/pink, Sclerae nonicteric Neck: Supple, JVD not distended Respiratory: Clear to auscultation bilaterally, Normal air movement Cardiovascular: Normal S1 S2, Edema (Edema-left leg), Irregular heart rate/rhythm Capillary refill: <2 Seconds Gastrointestinal: Soft and benign, Non-distended, No tenderness Musculoskeletal: Swelling (Left leg) Integumentary: Erythema (Left leg), Other (Small sore-with serosanguineous discharge-left leg.) Neurological: Normal speech, Normal strength at 5/5 x4 extr Other Physical/Emotional Findings: General: Mild distress, Confused, Obese, Other (Irritable). HEENT: Atraumatic, Normocephalic, PERRLA, Mucous membr. moist/pink, EOMI, Sclerae nonicteric. Neck: Supple, JVD not distended, No Thyromegaly. Respiratory: Clear to auscultation bilaterally, Normal air movement. Cardiovascular: Normal S1 S2, No murmurs, Edema (Left leg), Irregular heart rate/rhythm. Capillary refill: <2 Seconds. Gastrointestinal: Normal bowel sounds, Soft and benign, Non-distended, No tenderness. Musculoskeletal: Swelling (Left leg). Integumentary: Erythema (Left leg swollen and erythema from the foot to the knee, open wound with serosanguineous discharge.). Neurological: Normal strength at 5/5 x4 extr, Cranial nerves 3-12 intact, Other (Confused). Lymphatics: No axilla or inguinal lymphadenopathy Assessment And Plan - Current Problems (Diagnosis) (1) Sepsis Current Visit: Yes Status: Acute (2) Cellulitis of lower extremity Current Visit: Yes Status: Acute (3) Infected wound Current Visit: Yes Status: Acute (4) Diabetes mellitus type 2 in obese Current Visit: Yes Status: Acute (5) Hypertension Current Visit: Yes Status: Acute (6) Metabolic encephalopathy Current Visit: Yes Status: Acute (7) Chronic kidney disease, stage 3 Current Visit: Yes Status: Acute (8) Thrombocytopenia Current Visit: Yes Status: Acute - Plan - Physical Exam General: Mild distress, Confused, Obese, Other (Irritable) HEENT: Atraumatic, Normocephalic, PERRLA, Mucous membr. moist/pink, EOMI, Sclerae nonicteric Neck: Supple, JVD not distended, No Thyromegaly Respiratory: Clear to auscultation bilaterally, Normal air movement Cardiovascular: Normal S1 S2, No murmurs, Edema (Left leg), Irregular heart rate/rhythm Capillary refill: <2 Seconds Gastrointestinal: Normal bowel sounds, Soft and benign, Non-distended, No tenderness Musculoskeletal: Swelling (Left leg) Integumentary: Erythema (Left leg swollen and erythema from the foot to the knee, open wound with serosanguineous discharge.) Neurological: Normal strength at 5/5 x4 extr, Cranial nerves 3-12 intact, Other (Confused) Lymphatics: No axilla or inguinal lymphadenopathy Plan: Sepsis/cellulitis of lower extremity/infected wound/altered mental status: * Sepsis secondary to cellulitis. * Sepsis protocol initiated * Continue IV NS * Aggressive antibiotics-IV cefepime and vancomycin. Added doxycycline to cover vibrio given the patient was on the beach. * Blood cultures: No growth to date. * UA is negative. * Monitor vitals. * Pain management as needed. Chronic atrial fibrillation * Patient given digoxin in the ED. * Continue low dose metoprolol 25 mg b.i.d given sepsis. Noted patient is on 50 mg b.i.d. * IV hydration. * Patient with thrombocytopenia. * Noted drop in hemoglobin. Will continue to hold Xarelto. Chronic kidney disease stage 3 * Continue IV hydration for 1 more day * Serum creatinine improved with IV fluid. Thrombocytopenia * No anticoagulation for now. Diabetes mellitus type 2 * Hold home medications due to poor oral intake. * Blood sugar within acceptable range. * Manage blood sugar with insulin sliding scale
[2020-12-04] MEDS ORDERED: DOXYCYCLINE 100 MG in NA CHLORIDE 0.9% 100 ML IVPB SCH (21:00)
[2020-12-04] MEDS: ATORVASTATIN 10 MG TAB PO SCH (21:54)
[2020-12-04] MEDS: DOXYCYCLINE 100 MG CAP PO SCH (21:55)
[2020-12-05] MEDS: HYDROCODONE/APAP 5/325 MG TAB PO PRN ×3 (03:26→13:50)
[2020-12-05 04:31] LABS: Absolute Lymphocytes (CBC) 0.5 K/uL (0.7-4.9); Basophils % 0.5 % (0-1.3); Hematocrit 39.8 % (39.6-49.0); Lymphocytes % 5.1 % (15.3-44.8); MPV 9.4 fL (7.6-11.3); RBC Red Blood Cell Count 4.74 M/uL (4.33-5.43)
[2020-12-05 04:38] LABS: Potassium 3.8 mmol/L (3.5-5.1)
[2020-12-05] MEDS: METOPROLOL TAR 25 MG TAB PO SCH ×2 (05:33→16:55)
[2020-12-05] MEDS: NA CHLORIDE 0.9% 1,000 ML IV SCH (05:33)
[2020-12-05] MEDS: METOPROLOL TAR 25 MG TAB PO ONE ×2 (06:26→09:34)
[2020-12-05] MEDS: INSULIN -REGULAR HUMAN 50 UNIT/0.5 ML ML SQ SCH ×4 (07:30→20:53)
[2020-12-05] MEDS: allopurinoL 100 MG TAB PO SCH (09:34)
[2020-12-05] MEDS: VITAMIN D 1000 UNIT TAB PO SCH (09:34)
[2020-12-05] MEDS: DOXYCYCLINE 100 MG CAP PO SCH (09:34)
[2020-12-05] MEDS: TAMSULOSIN 0.4 MG SR CAP PO SCH ×2 (09:35→20:51)
[2020-12-05] MEDS: ENOXAPARIN 40 MG/0.4 ML SQ SCH (09:36)
[2020-12-05] MEDS: CEFEPIME 1 GM in NA CHLORIDE 0.9% 100 ML IV SCH (09:37)
[2020-12-05] MEDS ORDERED: METOPROLOL TAR 50 MG TAB PO ONE (10:00)
--- NOTE | 2020-12-05 10:06 | P.CNS ---
Date of Consult: 12/05/20 Chief Complaint: Left leg swelling and redness, confusion History of Present Illness: The patient is a 74-year-old male with a past medical history of chronic AFib, CKD, diabetes who presented to the emergency department secondary to sudden- onset of redness and pain in his left lower extremity and which rapidly worsened over a period of 2 days. Patient denies any trauma to the area, states that he woke up Friday evening due to severe pain in his left lower extremity. Patient states that he has never had are infection like this in the past. Infectious disease has been consulted to manage the patient's antibiotic regimen. Patient empirically placed on vancomycin and cefepime on 12/06. Patient currently denies nausea/vomiting/diarrhea/shortness breast/chest pain. Patient reports tenderness to left lower extremity however states that it is improving. Allergies No Known Allergies Allergy (Unverified 12/03/20 13:16) Home Medications: Allopurinol 100 mg PO DAILY 12/03/20 Atorvastatin Calcium 10 mg PO BEDTIME 12/03/20 Cholecalciferol (Vitamin D3) [Vitamin D3] 2,000 unit PO DAILY 12/03/20 Metoprolol Tartrate 75 mg PO BID 12/03/20 Rivaroxaban [Xarelto] 15 mg PO BEDTIME 12/03/20 Tamsulosin [Flomax*] 1 cap PO BID 12/03/20 glipiZIDE [Glucotrol Xl] 2.5 mg PO DAILY 12/03/20 - Past Medical/Surgical History Diabetic: Yes -: NIDDM. -: HTN -: AFIB. -: Chronic kidney disease -: CABG -: Carotid endarterectomy. -: Tephlon implant - Social History Alcohol use: Yes CD- Drugs: No Caffeine use: No Place of Residence: Home Review of Systems 10-point ROS is otherwise unremarkable Physical Examination Temp Pulse Resp BP Pulse Ox 98.2 F 104 H 16 167/115 H 96 12/05/20 08:00 12/05/20 08:00 12/05/20 08:00 12/05/20 08:00 12/05/20 08:00 General: Alert, In no apparent distress, Obese HEENT: Atraumatic, Normocephalic Neck: Supple, JVD not distended Respiratory: Clear to auscultation bilaterally, Normal air movement Cardiovascular: No edema, Normal pulses, Normal S1 S2, No murmurs Capillary refill: <2 Seconds Gastrointestinal: Normal bowel sounds, Soft and benign Musculoskeletal: No clubbing, No contractures Integumentary: Other (Left lower extremity cellulitis with erythema and sw elling. 4+ pitting edema, small wounds weeping serous fluid located on the left anterior che and the lateral lower extremity.) Laboratory Last Values WBC 12.70 K/uL (4.3-10.9) H 12/03/20 10:36 RBC 5.37 M/uL (4.33-5.43) 12/03/20 10:36 Hgb 14.3 g/dL (13.6-17.9) 12/03/20 10:36 Hct 45.1 % (39.6-49.0) 12/03/20 10:36 MCV 84.1 fL (80-100) 12/03/20 10:36 MCH 26.7 pg (27.0-35.0) L 12/03/20 10:36 MCHC 31.8 g/dL (32.0-36.0) L 12/03/20 10:36 RDW 17.0 % (12.1-15.2) H 12/03/20 10:36 Plt Count 131 K/uL (152-406) L 12/03/20 10:36 MPV 9.5 fL (7.6-11.3) 12/03/20 10:36 Neutrophils % 94.9 % (41.7-73.7) H 12/03/20 10:36 Lymphocytes % 1.2 % (15.3-44.8) L 12/03/20 10:36 Monocytes % 3.7 % (3.3-12.3) 12/03/20 10:36 Eosinophils % 0.0 % (0-4.4) 12/03/20 10:36 Basophils % 0.2 % (0-1.3) 12/03/20 10:36 Absolute Neutrophils 12.1 K/uL (1.8-8.0) H 12/03/20 10:36 Absolute Lymphocytes 0.2 K/uL (0.7-4.9) L 12/03/20 10:36 Absolute Monocytes 0.5 K/uL (0.1-1.3) 12/03/20 10:36 Absolute Eosinophils 0.0 K/uL (0-0.5) 12/03/20 10:36 Absolute Basophils 0.0 K/uL (0-0.5) 12/03/20 10:36 PT 19.9 SECONDS (9.5-12.5) H 12/03/20 10:36 INR 1.72 12/03/20 10:36 APTT 28.1 SECONDS (24.3-36.9) 12/03/20 10:36 Sodium 145 mmol/L (136-145) 12/03/20 10:36 Potassium 3.5 mmol/L (3.5-5.1) 12/03/20 10:36 Chloride 110 mmol/L (98-107) H 12/03/20 10:36 Carbon Dioxide 25 mmol/L (21-32) 12/03/20 10:36 BUN 19 mg/dL (7-18) H 12/03/20 10:36 Creatinine 1.40 mg/dL (0.55-1.3) H 12/03/20 10:36 Estimated GFR 49 mL/min (=/>90) L 12/03/20 10:36 Glucose 219 mg/dL (74-106) H 12/03/20 10:36 POC Glucose 204 mg/dL (65-120) H 12/03/20 10:25 Lactic Acid 3.8 mmol/L (0.4-2.0) H 12/03/20 10:36 Calcium 8.7 mg/dL (8.5-10.1) 12/03/20 10:36 Magnesium 1.6 mg/dL (1.8-2.4) L 12/03/20 10:36 Total Bilirubin 1.3 mg/dL (0.2-1.0) H 12/03/20 10:36 Direct Bilirubin 0.3 mg/dL (0-0.2) H 12/03/20 10:36 AST 15 U/L (15-37) 12/03/20 10:36 ALT 26 U/L (12-78) 12/03/20 10:36 Alkaline Phosphatase 53 U/L (45-117) 12/03/20 10:36 Creatine Kinase 119 U/L (39-308) 12/03/20 10:36 CK-MB (CK-2) 2.7 ng/mL (1.0-3.6) 12/03/20 10:36 Rapid Troponin I < 0.02 ng/mL (0.0-0.045) 12/03/20 10:36 NT-Pro-B Natriuret Pep 1369 pg/mL (<450) H 12/03/20 10:36 Serum Total Protein 6.6 g/dL (6.4-8.2) 12/03/20 10:36 Albumin 3.6 g/dL (3.4-5.0) 12/03/20 10:36 Globulin 3.0 g/dL (2.3-3.5) 12/03/20 10:36 Albumin/Globulin Ratio 1.2 (1.1-1.8) 12/03/20 10:36 Amylase 34 U/L (25-115) 12/03/20 10:36 Lipase 74 U/L (73-393) 12/03/20 10:36 Procalcitonin 0.31 ng/mL (<0.050) H 12/03/20 10:36 TSH 1.820 uIU/mL (0.360-3.740) 12/03/20 10:36 Urine pH 5.0 (5.0-7.0) 12/03/20 10:59 Ur Specific [place] 1.020 (1.005-1.030) 12/03/20 10:59 Glucose (UA)(Auto) Trace (Negative) 12/03/20 10:59 Urine Ketones Negative (Negative) 12/03/20 10:59 Urine Blood 1+ (Negative) H 12/03/20 10:59 Urine Nitrite Negative (Negative) 12/03/20 10:59 Ur Leukocyte Esterase Negative (Negative) 12/03/20 10:59 Urine RBC <5 /HPF (NONE SEEN) 12/03/20 10:57 Urine WBC <5 /HPF (<5) 12/03/20 10:57 Ur Squamous Epith Cells <5 /HPF (NONE SEEN) 12/03/20 10:57 Urine Bacteria <20 /HPF (NONE SEEN) 12/03/20 10:57 Urine Culture Reflexed Not needed 12/03/20 10:57 Urine Total Protein Negative (Negative) 12/03/20 10:59 Influenza Type A RNA Negative (NEGATIVE) 12/03/20 10:36 Influenza Type B RNA Negative (NEGATIVE) 12/03/20 10:36 SARS-CoV-2 RNA (RT-PCR) Negative (NEGATIVE) 12/03/20 10:36 Conclusions/Impression: Antibiotics: Vancomycin Start: 12/07 Assessment/plan Left lower extremity cellulitis Patient empirically placed on cefepime and vancomycin, cefepime discontinued. Recommend patient to receive IV vancomycin for at least another 24 hr. Can send home on oral doxycycline and Augmentin. Vancomycin trough goal of 12-17, continue to monitor renal function closely. Patient's current creatinine clearance is 82 milliliters/minute. Diabetes Continue current medication. Strict glucose monitoring needed for infection control and proper wound healing Leukocytosis Leukocytosis on admission, now within normal range. Thrombocytopenia Continue to monitor H&H Chronic AFib/morbid obesity/anemia -medical management per primary team Plan of care discussed with Dr. Bean Thank you for consultation
--- NOTE | 2020-12-05 13:41 | P.PN ---
Date of Service: 12/05/20 Subjective: No acute events overnight. Patient reports feeling slight improvement, feels left leg is less red and not as painful. Still with some swelling. Asking if he would be able to be discharged, he is in the middle of his camping trip and would like to resume this. ROS: 10 point ROS as noted above, otherwise negative Physical exam GEN: Alert, oriented, NAD HEENT: Normal conjunctiva, sclera anicteric CV: Irregular rate/rhythm, 1+ edema left lower extremity Pulm: Nonlabored respiration on room air ABD: Soft, nontender, nondistended Integumentary: Significant erythema from left foot up to knee Neuro: Normal speech, normal affect Problem List Sepsis secondary to left lower extremity cellulitis Diabetes mellitus type 2, [id number] Hypertension Acute metabolic encephalopathy, resolved NEYDA on CKD stage II Thrombocytopenia Chronic atrial fibrillation Patient initially with sepsis secondary to cellulitis, s/p sepsis protocol treatment Overall seems to be improving, tolerating diet well, afebrile, no leukocytosis. DC IV fluids Treated with cefepime and vancomycin, doxycycline added to cover vibrio since patient was on the beach Cultures remain negative Infectious disease consulted on 12/05, recommend de-escalation to vancomycin only at least for another 24 hours. And discharge on p.o. antibiotics Blood pressure improved, now more tachycardic, increase metoprolol to home dosehis records indicate he takes 1-1/2 tablets of 75 mg of Toprol twice a day Xarelto held this hospitalization due to thrombocytopenia and mild drop in hemoglobin Creatinine improved, suspect NEYDA secondary to prerenal in setting of sepsis Dispo: Overall improving, patient was to be discharged soon as possible to resume his camping trip ID consulted, possible discharge tomorrow Time Spent Managing Pts Care (In Minutes): 35
[2020-12-05] MEDS: VANCOMYCIN 2 GM in NA CHLORIDE 0.9% 500 ML IVPB SCH (13:50)
[2020-12-05] MEDS: METOPROLOL TAR 50 MG TAB PO SCH (16:52)
[2020-12-05] MEDS ORDERED: METOPROLOL TAR 25 MG TAB PO SCH (18:00)
[2020-12-05] MEDS: ATORVASTATIN 10 MG TAB PO SCH (20:52)
[2020-12-06] MEDS: METOPROLOL TAR 50 MG TAB PO SCH ×2 (05:33→18:07)
[2020-12-06] MEDS: METOPROLOL TAR 25 MG TAB PO SCH ×2 (05:33→18:07)
[2020-12-06 06:01] LABS: Absolute Lymphocytes (CBC) 0.5 K/uL (0.7-4.9); Basophils % 0.4 % (0-1.3); Hematocrit 40.2 % (39.6-49.0); MPV 9.2 fL (7.6-11.3); RBC Red Blood Cell Count 4.78 M/uL (4.33-5.43)
[2020-12-06 06:19] LABS: Albumin 2.7 g/dL (3.4-5.0); Bilirubin Total 0.8 mg/dL (0.2-1.0); Magnesium 2.1 mg/dL (1.8-2.4); Potassium 3.7 mmol/L (3.5-5.1)
[2020-12-06] MEDS ORDERED: POTASSIUM CL SA 10 MEQ TAB PO ONE (07:00)
[2020-12-06] MEDS: INSULIN -REGULAR HUMAN 50 UNIT/0.5 ML ML SQ SCH ×4 (07:30→21:35)
--- NOTE | 2020-12-06 09:52 | P.PN ---
Subjective Date of Service: 12/06/20 Chief Complaint: Left leg swelling and redness, confusion Patient seen examined at bedside, no improvements to left lower extremity cellulitis despite being on IV vancomycin for 48 hr. IV cefepime has been added, recommend continuing monitoring patient for additional 24 hr. Review of Systems 10-point ROS is otherwise unremarkable Physical Examination - Vital Signs Temperature: 99.4 F Blood Pressure: 173/60 Pulse: 104 Respirations: 16 Pulse Ox (%): 93 - Physical Exam Other Physical/Emotional Findings: General: Mild distress, Confused, Obese, Other (Irritable). HEENT: Atraumatic, Normocephalic, PERRLA, Mucous membr. moist/pink, EOMI, Sclerae nonicteric. Neck: Supple, JVD not distended, No Thyromegaly. Respiratory: Clear to auscultation bilaterally, Normal air movement. Cardiovascular: Normal S1 S2, No murmurs, Edema (Left leg), Irregular heart rate/rhythm. Capillary refill: <2 Seconds. Gastrointestinal: Normal bowel sounds, Soft and benign, Non-distended, No tenderness. Musculoskeletal: Swelling (Left leg). Integumentary: Erythema (Left leg swollen and erythema from the foot to the knee, open wound with serosanguineous discharge.). Neurological: Normal strength at 5/5 x4 extr, Cranial nerves 3-12 intact, Other (Confused). Lymphatics: No axilla or inguinal lymphadenopathy - Studies Laboratory Last Values WBC 12.70 K/uL (4.3-10.9) H 12/03/20 10:36 RBC 5.37 M/uL (4.33-5.43) 12/03/20 10:36 Hgb 14.3 g/dL (13.6-17.9) 12/03/20 10:36 Hct 45.1 % (39.6-49.0) 12/03/20 10:36 MCV 84.1 fL (80-100) 12/03/20 10:36 MCH 26.7 pg (27.0-35.0) L 12/03/20 10:36 MCHC 31.8 g/dL (32.0-36.0) L 12/03/20 10:36 RDW 17.0 % (12.1-15.2) H 12/03/20 10:36 Plt Count 131 K/uL (152-406) L 12/03/20 10:36 MPV 9.5 fL (7.6-11.3) 12/03/20 10:36 Neutrophils % 94.9 % (41.7-73.7) H 12/03/20 10:36 Lymphocytes % 1.2 % (15.3-44.8) L 12/03/20 10:36 Monocytes % 3.7 % (3.3-12.3) 12/03/20 10:36 Eosinophils % 0.0 % (0-4.4) 12/03/20 10:36 Basophils % 0.2 % (0-1.3) 12/03/20 10:36 Absolute Neutrophils 12.1 K/uL (1.8-8.0) H 12/03/20 10:36 Absolute Lymphocytes 0.2 K/uL (0.7-4.9) L 12/03/20 10:36 Absolute Monocytes 0.5 K/uL (0.1-1.3) 12/03/20 10:36 Absolute Eosinophils 0.0 K/uL (0-0.5) 12/03/20 10:36 Absolute Basophils 0.0 K/uL (0-0.5) 12/03/20 10:36 PT 19.9 SECONDS (9.5-12.5) H 12/03/20 10:36 INR 1.72 12/03/20 10:36 APTT 28.1 SECONDS (24.3-36.9) 12/03/20 10:36 Sodium 145 mmol/L (136-145) 12/03/20 10:36 Potassium 3.5 mmol/L (3.5-5.1) 12/03/20 10:36 Chloride 110 mmol/L (98-107) H 12/03/20 10:36 Carbon Dioxide 25 mmol/L (21-32) 12/03/20 10:36 BUN 19 mg/dL (7-18) H 12/03/20 10:36 Creatinine 1.40 mg/dL (0.55-1.3) H 12/03/20 10:36 Estimated GFR 49 mL/min (=/>90) L 12/03/20 10:36 Glucose 219 mg/dL (74-106) H 12/03/20 10:36 POC Glucose 204 mg/dL (65-120) H 12/03/20 10:25 Lactic Acid 3.8 mmol/L (0.4-2.0) H 12/03/20 10:36 Calcium 8.7 mg/dL (8.5-10.1) 12/03/20 10:36 Magnesium 1.6 mg/dL (1.8-2.4) L 12/03/20 10:36 Total Bilirubin 1.3 mg/dL (0.2-1.0) H 12/03/20 10:36 Direct Bilirubin 0.3 mg/dL (0-0.2) H 12/03/20 10:36 AST 15 U/L (15-37) 12/03/20 10:36 ALT 26 U/L (12-78) 12/03/20 10:36 Alkaline Phosphatase 53 U/L (45-117) 12/03/20 10:36 Creatine Kinase 119 U/L (39-308) 12/03/20 10:36 CK-MB (CK-2) 2.7 ng/mL (1.0-3.6) 12/03/20 10:36 Rapid Troponin I < 0.02 ng/mL (0.0-0.045) 12/03/20 10:36 NT-Pro-B Natriuret Pep 1369 pg/mL (<450) H 12/03/20 10:36 Serum Total Protein 6.6 g/dL (6.4-8.2) 12/03/20 10:36 Albumin 3.6 g/dL (3.4-5.0) 12/03/20 10:36 Globulin 3.0 g/dL (2.3-3.5) 12/03/20 10:36 Albumin/Globulin Ratio 1.2 (1.1-1.8) 12/03/20 10:36 Amylase 34 U/L (25-115) 12/03/20 10:36 Lipase 74 U/L (73-393) 12/03/20 10:36 Procalcitonin 0.31 ng/mL (<0.050) H 12/03/20 10:36 TSH 1.820 uIU/mL (0.360-3.740) 12/03/20 10:36 Urine pH 5.0 (5.0-7.0) 12/03/20 10:59 Ur Specific [place] 1.020 (1.005-1.030) 12/03/20 10:59 Glucose (UA)(Auto) Trace (Negative) 12/03/20 10:59 Urine Ketones Negative (Negative) 12/03/20 10:59 Urine Blood 1+ (Negative) H 12/03/20 10:59 Urine Nitrite Negative (Negative) 12/03/20 10:59 Ur Leukocyte Esterase Negative (Negative) 12/03/20 10:59 Urine RBC <5 /HPF (NONE SEEN) 12/03/20 10:57 Urine WBC <5 /HPF (<5) 12/03/20 10:57 Ur Squamous Epith Cells <5 /HPF (NONE SEEN) 12/03/20 10:57 Urine Bacteria <20 /HPF (NONE SEEN) 12/03/20 10:57 Urine Culture Reflexed Not needed 12/03/20 10:57 Urine Total Protein Negative (Negative) 12/03/20 10:59 Influenza Type A RNA Negative (NEGATIVE) 12/03/20 10:36 Influenza Type B RNA Negative (NEGATIVE) 12/03/20 10:36 SARS-CoV-2 RNA (RT-PCR) Negative (NEGATIVE) 12/03/20 10:36 Assessment And Plan - Plan Physical Exam: General: Alert, In no apparent distress, Obese HEENT: Atraumatic, Normocephalic Neck: Supple, JVD not distended Respiratory: Clear to auscultation bilaterally, Normal air movement Cardiovascular: No edema, Normal pulses, Normal S1 S2, No murmurs Capillary refill: <2 Seconds Gastrointestinal: Normal bowel sounds, Soft and benign Musculoskeletal: No clubbing, No contractures Integumentary: Other (Left lower extremity cellulitis with erythema and swelling. 4+ pitting edema, small wounds weeping serous fluid located on the left anterior che and the lateral lower extremity.) Conclusions/Impression: Antibiotics: Vancomycin Start: 12/04 cefepime start: 12/06 Assessment/plan Left lower extremity cellulitis Left lower extremity shows no improvement, cefepime added to antibiotic regimen. Vancomycin trough goal of 12-17, continue to monitor renal function closely. Patient's current creatinine clearance is 82 milliliters/minute. Once patient starts to clinically improve can send home on oral doxycycline and Augmentin. Diabetes Continue current medication. Strict glucose monitoring needed for infection control and proper wound healing Leukocytosis Leukocytosis on admission, now within normal range. Thrombocytopenia Continue to monitor H&H Chronic AFib/morbid obesity/anemia -medical management per primary team Plan of care discussed with Dr. Bean Thank you for consultation
[2020-12-06] MEDS: VITAMIN D 1000 UNIT TAB PO SCH (10:27)
[2020-12-06] MEDS: TAMSULOSIN 0.4 MG SR CAP PO SCH ×2 (10:28→21:34)
[2020-12-06] MEDS: allopurinoL 100 MG TAB PO SCH (10:28)
[2020-12-06] MEDS: ENOXAPARIN 40 MG/0.4 ML SQ SCH (10:28)
--- NOTE | 2020-12-06 15:01 | P.PN ---
Date of Service: 12/06/20 Subjective: No acute events overnight. Patient reports feeling slight improvement, feels left leg is less red and not as painful. Still with swelling wants to be discharged as soon as possible to resume camping trip ROS: 10 point ROS as noted above, otherwise negative Physical exam GEN: Alert, oriented, NAD HEENT: Normal conjunctiva, sclera anicteric CV: Irregular rate/rhythm, 2+ edema left lower extremity Pulm: Nonlabored respiration on room air ABD: Soft, nontender, nondistended Integumentary: Significant erythema from left foot up to knee Neuro: Normal speech, normal affect Problem List Sepsis secondary to left lower extremity cellulitis Diabetes mellitus type 2, [id number] Hypertension Acute metabolic encephalopathy, resolved NEYDA on CKD stage II Thrombocytopenia Chronic atrial fibrillation Patient initially with sepsis secondary to cellulitis, s/p sepsis protocol treatment Overall seems to be improving, tolerating diet well, afebrile, no leukocytosis. Treated with cefepime and vancomycin, doxycycline added to cover vibrio since patient was on the beach. Cultures remain negative Infectious disease consulted on 12/05, recommend de-escalation to vancomycin only at least for another 24 hours, can continue cefepime for now. And discharge on p.o. antibiotics when ready Blood pressure improved, tachycardic yesterday, takes 1-1/2 tablets of 75 mg of Toprol twice a day Xarelto held this hospitalization due to thrombocytopenia and mild drop in hemoglobin Creatinine improved, suspect NEYDA secondary to prerenal in setting of sepsis no significant improvement in RLE erythema / swelling over last 2 days advised to keep elevated Dispo: Overall improving, patient wants to be discharged soon as possible to resume his camping trip ID consulted, possible discharge home in next 1-2 days Time Spent Managing Pts Care (In Minutes): 35
[2020-12-06] MEDS: VANCOMYCIN 2 GM in NA CHLORIDE 0.9% 500 ML IVPB SCH (15:29)
[2020-12-06] MEDS ORDERED: CEFEPIME 2 GM VIAL IV SCH (21:00)
[2020-12-06] MEDS: CEFEPIME 2 GM in NA CHLORIDE 0.9% 100 ML IV SCH (21:33)
[2020-12-06] MEDS: ATORVASTATIN 10 MG TAB PO SCH (21:33)
[2020-12-07] MEDS ORDERED: HYDRALAZINE HCL 20 MG/ML VIAL IV ONE ×2 (00:39→11:54)
[2020-12-07] MEDS: METOPROLOL TAR 25 MG TAB PO SCH (05:20)
[2020-12-07] MEDS: METOPROLOL TAR 50 MG TAB PO SCH (05:20)
[2020-12-07 06:55] LABS: Absolute Lymphocytes (CBC) 0.5 K/uL (0.7-4.9); Basophils % 0.8 % (0-1.3); Hematocrit 41.7 % (39.6-49.0); Lymphocytes % 6.5 % (15.3-44.8); MPV 8.3 fL (7.6-11.3); RBC Red Blood Cell Count 4.93 M/uL (4.33-5.43)
[2020-12-07 07:07] LABS: Potassium 3.6 mmol/L (3.5-5.1)
[2020-12-07] MEDS: INSULIN -REGULAR HUMAN 50 UNIT/0.5 ML ML SQ SCH ×2 (07:30→11:30)
[2020-12-07] MEDS ORDERED: POTASSIUM 25 MEQ EFFERV TAB PO ONE (09:00)
--- NOTE | 2020-12-07 09:39 | P.PN ---
Subjective Date of Service: 12/07/20 Chief Complaint: Left leg swelling and redness, confusion Patient seen examined at bedside, left lower extremity cellulites slightly improving vancomycin trough taken on 12/06 below therapeutic range at 9.4. Review of Systems 10-point ROS is otherwise unremarkable Physical Examination - Vital Signs Temperature: 100.0 F Blood Pressure: 145/76 Pulse: 105 Respirations: 18 Pulse Ox (%): 95 - Physical Exam Other Physical/Emotional Findings: General: Mild distress, Confused, Obese, Other (Irritable). HEENT: Atraumatic, Normocephalic, PERRLA, Mucous membr. moist/pink, EOMI, Sclerae nonicteric. Neck: Supple, JVD not distended, No Thyromegaly. Respiratory: Clear to auscultation bilaterally, Normal air movement. Cardiovascular: Normal S1 S2, No murmurs, Edema (Left leg), Irregular heart rate/rhythm. Capillary refill: <2 Seconds. Gastrointestinal: Normal bowel sounds, Soft and benign, Non-distended, No tenderness. Musculoskeletal: Swelling (Left leg). Integumentary: Erythema (Left leg swollen and erythema from the foot to the knee, open wound with serosanguineous discharge.). Neurological: Normal strength at 5/5 x4 extr, Cranial nerves 3-12 intact, Other (Confused). Lymphatics: No axilla or inguinal lymphadenopathy - Studies Laboratory Last Values WBC 12.70 K/uL (4.3-10.9) H 12/03/20 10:36 RBC 5.37 M/uL (4.33-5.43) 12/03/20 10:36 Hgb 14.3 g/dL (13.6-17.9) 12/03/20 10:36 Hct 45.1 % (39.6-49.0) 12/03/20 10:36 MCV 84.1 fL (80-100) 12/03/20 10:36 MCH 26.7 pg (27.0-35.0) L 12/03/20 10:36 MCHC 31.8 g/dL (32.0-36.0) L 12/03/20 10:36 RDW 17.0 % (12.1-15.2) H 12/03/20 10:36 Plt Count 131 K/uL (152-406) L 12/03/20 10:36 MPV 9.5 fL (7.6-11.3) 12/03/20 10:36 Neutrophils % 94.9 % (41.7-73.7) H 12/03/20 10:36 Lymphocytes % 1.2 % (15.3-44.8) L 12/03/20 10:36 Monocytes % 3.7 % (3.3-12.3) 12/03/20 10:36 Eosinophils % 0.0 % (0-4.4) 12/03/20 10:36 Basophils % 0.2 % (0-1.3) 12/03/20 10:36 Absolute Neutrophils 12.1 K/uL (1.8-8.0) H 12/03/20 10:36 Absolute Lymphocytes 0.2 K/uL (0.7-4.9) L 12/03/20 10:36 Absolute Monocytes 0.5 K/uL (0.1-1.3) 12/03/20 10:36 Absolute Eosinophils 0.0 K/uL (0-0.5) 12/03/20 10:36 Absolute Basophils 0.0 K/uL (0-0.5) 12/03/20 10:36 PT 19.9 SECONDS (9.5-12.5) H 12/03/20 10:36 INR 1.72 12/03/20 10:36 APTT 28.1 SECONDS (24.3-36.9) 12/03/20 10:36 Sodium 145 mmol/L (136-145) 12/03/20 10:36 Potassium 3.5 mmol/L (3.5-5.1) 12/03/20 10:36 Chloride 110 mmol/L (98-107) H 12/03/20 10:36 Carbon Dioxide 25 mmol/L (21-32) 12/03/20 10:36 BUN 19 mg/dL (7-18) H 12/03/20 10:36 Creatinine 1.40 mg/dL (0.55-1.3) H 12/03/20 10:36 Estimated GFR 49 mL/min (=/>90) L 12/03/20 10:36 Glucose 219 mg/dL (74-106) H 12/03/20 10:36 POC Glucose 204 mg/dL (65-120) H 12/03/20 10:25 Lactic Acid 3.8 mmol/L (0.4-2.0) H 12/03/20 10:36 Calcium 8.7 mg/dL (8.5-10.1) 12/03/20 10:36 Magnesium 1.6 mg/dL (1.8-2.4) L 12/03/20 10:36 Total Bilirubin 1.3 mg/dL (0.2-1.0) H 12/03/20 10:36 Direct Bilirubin 0.3 mg/dL (0-0.2) H 12/03/20 10:36 AST 15 U/L (15-37) 12/03/20 10:36 ALT 26 U/L (12-78) 12/03/20 10:36 Alkaline Phosphatase 53 U/L (45-117) 12/03/20 10:36 Creatine Kinase 119 U/L (39-308) 12/03/20 10:36 CK-MB (CK-2) 2.7 ng/mL (1.0-3.6) 12/03/20 10:36 Rapid Troponin I < 0.02 ng/mL (0.0-0.045) 12/03/20 10:36 NT-Pro-B Natriuret Pep 1369 pg/mL (<450) H 12/03/20 10:36 Serum Total Protein 6.6 g/dL (6.4-8.2) 12/03/20 10:36 Albumin 3.6 g/dL (3.4-5.0) 12/03/20 10:36 Globulin 3.0 g/dL (2.3-3.5) 12/03/20 10:36 Albumin/Globulin Ratio 1.2 (1.1-1.8) 12/03/20 10:36 Amylase 34 U/L (25-115) 12/03/20 10:36 Lipase 74 U/L (73-393) 12/03/20 10:36 Procalcitonin 0.31 ng/mL (<0.050) H 12/03/20 10:36 TSH 1.820 uIU/mL (0.360-3.740) 12/03/20 10:36 Urine pH 5.0 (5.0-7.0) 12/03/20 10:59 Ur Specific [place] 1.020 (1.005-1.030) 12/03/20 10:59 Glucose (UA)(Auto) Trace (Negative) 12/03/20 10:59 Urine Ketones Negative (Negative) 12/03/20 10:59 Urine Blood 1+ (Negative) H 12/03/20 10:59 Urine Nitrite Negative (Negative) 12/03/20 10:59 Ur Leukocyte Esterase Negative (Negative) 12/03/20 10:59 Urine RBC <5 /HPF (NONE SEEN) 12/03/20 10:57 Urine WBC <5 /HPF (<5) 12/03/20 10:57 Ur Squamous Epith Cells <5 /HPF (NONE SEEN) 12/03/20 10:57 Urine Bacteria <20 /HPF (NONE SEEN) 12/03/20 10:57 Urine Culture Reflexed Not needed 12/03/20 10:57 Urine Total Protein Negative (Negative) 12/03/20 10:59 Influenza Type A RNA Negative (NEGATIVE) 12/03/20 10:36 Influenza Type B RNA Negative (NEGATIVE) 12/03/20 10:36 SARS-CoV-2 RNA (RT-PCR) Negative (NEGATIVE) 12/03/20 10:36 Assessment And Plan - Plan Physical Exam: General: Alert, In no apparent distress, Obese HEENT: Atraumatic, Normocephalic Neck: Supple, JVD not distended Respiratory: Clear to auscultation bilaterally, Normal air movement Cardiovascular: No edema, Normal pulses, Normal S1 S2, No murmurs Capillary refill: <2 Seconds Gastrointestinal: Normal bowel sounds, Soft and benign Musculoskeletal: No clubbing, No contractures Integumentary: Other (Left lower extremity cellulitis with erythema and swelling. 4+ pitting edema, small wounds weeping serous fluid located on the left anterior che and the lateral lower extremity.) Conclusions/Impression: Antibiotics: Vancomycin Start: 12/04 cefepime start: 12/06 Assessment/plan Left lower extremity cellulitis Left lower extremity shows no improvement, cefepime added to antibiotic regimen. Vancomycin trough goal of 12-17, continue to monitor renal function closely. Patient's current creatinine clearance is 82 milliliters/minute. Once patient starts to clinically improve can send home on oral doxycycline and Augmentin. Diabetes Continue current medication. Strict glucose monitoring needed for infection control and proper wound healing Leukocytosis Leukocytosis on admission, now within normal range. Thrombocytopenia Continue to monitor H&H Chronic AFib/morbid obesity/anemia -medical management per primary team Plan of care discussed with Dr. Bean Thank you for consultation
[2020-12-07] MEDS: VITAMIN D 1000 UNIT TAB PO SCH (09:45)
[2020-12-07] MEDS: TAMSULOSIN 0.4 MG SR CAP PO SCH (09:45)
[2020-12-07] MEDS: allopurinoL 100 MG TAB PO SCH (09:45)
[2020-12-07] MEDS: ENOXAPARIN 40 MG/0.4 ML SQ SCH (09:45)
[2020-12-07] MEDS: CEFEPIME 2 GM in NA CHLORIDE 0.9% 100 ML IV SCH (09:46)
[2020-12-07] MEDS ORDERED: lisinopriL 20 MG TAB PO ONE (13:15)
[2020-12-07 13:29] VITALS: BP 171/121
[2020-12-07 13:37] VITALS: TEMP 97.2
[2020-12-07 13:52] VITALS: O2SAT 97
[2020-12-07] MEDS ORDERED: VANCOMYCIN 2 GM in NA CHLORIDE 0.9% 500 ML IVPB SCH (16:00)
--- NOTE | 2020-12-07 20:53 | P.DS ---
Admission Date: 12/03/20 Discharge Date: 12/07/20 Disposition: ROUTINE DISCHARGE Discharge Condition: FAIR Reason for Admission: Left leg swelling and redness, confusion Consultations: ID- Dr. Bean Procedures: CXR (12/03): Mild bilateral interstitial prominence could represent interstitial pulmonary edema or viral infection. The heart is significantly enlarged in size. Moderate hiatal hernia. CT Head (12/03): IMPRESSION: No acute intracranial abnormality. Problem List Sepsis secondary to left lower extremity cellulitis Diabetes mellitus type 2, [id number] Hypertension Acute metabolic encephalopathy, resolved NEYDA on CKD stage II Thrombocytopenia Chronic atrial fibrillation Brief History of Present Illness: 74-year-old gentleman with a history of chronic atrial fibrillation, chronic kidney disease and diabetes presented to the emergency department due to sudden onset of redness of the left leg which rapidly worsened over a period of 2 days. He developed confusion. No fever. Patient is vacationing with his and were at the beach. Spouse mentioned patient did not get into the ocean. He has small wound on the left che and she does not know how patient got the wound. Spouse reports patient has been worked up for immunosuppression disease and recently saw a burial vault maker. He developed hematoma involving his left gluteal area and thigh earlyn this year which lasted for about a week. Lactic acid elevated, he has mild leukocytosis, creatinine 1.4. Blood pressure is stable in the ED. Patient met criteria for sepsis with tachycardia, leukocytosis, elevated lactic acid and altered mental status. Sepsis protocol initiated. Patient admitted for further management. Hospital Course: Patient was empirically treated with IV vanc and cefepime with gradual improvement. He was noted to have significant erythema and swelling up to knee. ID was consulted and recommended a few days of IV antibiotics. Patient continued with gradual improvement. On day of discharge he still had impressive erythema/swelling, but did show improvement, as well as resolution of leukocytosis. He is from out of town and was adamant he needed to be discharged so that he could return home with his . Discussed risk of possibly worsening. Patient expressed understanding and requested to be discharged. ID recommended augmentin and doxy to complete 2 week course total on discharge. Patient advised on elevation of his foot and avoidance of sun exposure while taking doxy. He stated he would f/u with his PCP as soon as getting back home. He was also found to have labile blood pressure readings, ranging from low- normal to 170s/100s. Patient and reported similar readings over the last 1- 2 months with his Mask Layout Designer, hotel front desk agent, and PCP. They all decided to discontinue some anti-hypertensives / not restart any. He seemed to have a little more consistent hypertension. He was prescribed lisinopril on discharge with hold parameters until he can follow up with his PCP. Vital Signs/Physical Exam: Physical exam GEN: Alert, oriented, NAD HEENT: Normal conjunctiva, sclera anicteric CV: Irregular rate/rhythm, 2+ edema left lower extremity Pulm: Nonlabored respiration on room air ABD: Soft, nontender, nondistended Integumentary: Significant erythema from left ankle up to knee, improved posteriorly Neuro: Normal speech, normal affect Temp Pulse Resp BP Pulse Ox 97.2 F 98 H 16 171/121 H 97 12/07/20 12:00 12/07/20 13:28 12/07/20 12:00 12/07/20 13:28 12/07/20 12:00 Other Physical/Emotional Findings: General: Mild distress, Confused, Obese, Other (Irritable). HEENT: Atraumatic, Normocephalic, PERRLA, Mucous membr. moist/pink, EOMI, Sclerae nonicteric. Neck: Supple, JVD not distended, No Thyromegaly. Respiratory: Clear to auscultation bilaterally, Normal air movement. Cardiovascular: Normal S1 S2, No murmurs, Edema (Left leg), Irregular heart rate/rhythm. Capillary refill: <2 Seconds. Gastrointestinal: Normal zeynep l sounds, Soft and benign, Non-distended, No tenderness. Musculoskeletal: Swelling (Left leg). Integumentary: Erythema (Left leg swollen and erythema from the foot to the knee, open wound with serosanguineous discharge.). Neurological: Normal strength at 5/5 x4 extr, Cranial nerves 3-12 intact, Other (Confused). Lymphatics: No axilla or inguinal lymphadenopathy Laboratory Data at Discharge: WBC 7.40 K/uL (4.3-10.9) 12/07/20 06:45 Hgb 13.3 g/dL (13.6-17.9) L 12/07/20 06:45 Hct 41.7 % (39.6-49.0) 12/07/20 06:45 Plt Count 160 K/uL (152-406) D 12/07/20 06:45 PT 20.3 SECONDS (9.5-12.5) H 12/04/20 04:50 INR 1.76 12/04/20 04:50 APTT 28.1 SECONDS (24.3-36.9) 12/03/20 10:36 Sodium 143 mmol/L (136-145) 12/07/20 06:45 Potassium 3.6 mmol/L (3.5-5.1) 12/07/20 06:45 BUN 17 mg/dL (7-18) 12/07/20 06:45 Creatinine 0.97 mg/dL (0.55-1.3) 12/07/20 06:45 Glucose 116 mg/dL (74-106) H 12/07/20 06:45 Phosphorus 2.4 mg/dL (2.5-4.9) L 12/04/20 04:50 Magnesium 2.1 mg/dL (1.8-2.4) 12/06/20 05:16 Total Bilirubin 0.8 mg/dL (0.2-1.0) 12/06/20 05:16 AST 24 U/L (15-37) 12/06/20 05:16 ALT 29 U/L (12-78) 12/06/20 05:16 Alkaline Phosphatase 62 U/L (45-117) 12/06/20 05:16 Amylase 34 U/L (25-115) 12/03/20 10:36 Lipase 74 U/L (73-393) 12/03/20 10:36 Home Medications: Allopurinol 100 mg PO DAILY 12/03/20 Atorvastatin Calcium 10 mg PO BEDTIME 12/03/20 Cholecalciferol (Vitamin D3) [Vitamin D3] 2,000 unit PO DAILY 12/03/20 Metoprolol Tartrate 75 mg PO BID 12/03/20 Rivaroxaban [Xarelto*] 15 mg PO BEDTIME 12/03/20 Tamsulosin [Flomax*] 1 cap PO BID 12/03/20 glipiZIDE [Glucotrol Xl] 2.5 mg PO DAILY 12/03/20 Amox/Clavulanate [Augmentin 875-125 Tab] 875 mg PO BID 10 Days #20 tab 12/07/20 Doxycycline Hyclate 100 mg PO BID 10 Days #20 tablet 12/07/20 Lisinopril [Zestril] 20 mg PO DAILY 30 Days #30 tablet 12/07/20 New Medications: Amox/Clavulanate [Augmentin 875-125 Tab] 875 mg PO BID 10 Days #20 tab Doxycycline Hyclate 100 mg PO BID 10 Days #20 tablet Lisinopril [Zestril] 20 mg PO DAILY 30 Days #30 tablet Physician Discharge Instructions: You were found to have severe this (skin infection) of your leg. You were treated with IV antibiotics and had gradual improvement of your pain, swelling, and redness. On admission you were also noted to have high white blood cell counts, which resolved with treatment. You were evaluated by the infectious disease team as well. You still have significant amount of erythema and swelling. You may benefit from further IV antibiotics, however you were adamant on being discharged home today and you are from out of town. You agreed that you would follow-up NACHO with your primary care doctor. If your leg worsens, recommend going to the nearest ER. You are prescribed 10 more days of antibiotics to complete a total of 2 weeks. Recommend keeping your leg elevated as much as possible to help with the swelling. Resume your other home medications as previously prescribed. Recommend for any low-grade temperature. Recommend avoidance of pain in the sun while taking the antibiotics, increases your risk/make you more sensitive for sunburns. Diet: AHA Activity: Ad ronnie Followup: NONE,NONE [Primary Care Provider] - Time spent managing pt's care (in minutes): 45
== END 2020-12-07 14:00 | disposition home or self-care (01) | DRG 871 ==
LOC: ER 10:18 → ERHOLD 12:01 → 2ND 12:51
PROVIDERS: ADMIT Internal Medicine; ATTEND Internal Medicine
DX: A41.9 Sepsis, unspecified organism (principal); G93.41 Metabolic encephalopathy; L03.116 Cellulitis of left lower limb; N17.9 Acute kidney failure, unspecified; I48.20 Chronic atrial fibrillation, unspecified; I12.9 Hypertensive chronic kidney disease with stage 1 through stage 4 chronic kidney disease, or unspecified chronic kidney disease; E11.22 Type 2 diabetes mellitus with diabetic chronic kidney disease; N18.2 Chronic kidney disease, stage 2 (mild); D69.6 Thrombocytopenia, unspecified; E66.01 Morbid (severe) obesity due to excess calories; Z68.32 Body mass index [BMI] 32.0-32.9, adult; D64.9 Anemia, unspecified; Z20.822 Contact with and (suspected) exposure to COVID-19
CPT/HCPCS: 0240U; 36415; 70450; 71045; 80048; 80053; 80076; 80202; 81003; 81015; 82150; 82550; 82553; 82947; 83605; 83690; 83735; 83880; 84100; 84145; 84443; 84484; 85025; 85610; 85730; 86140; 87040; 93005; 94760; 97116; 97161; 97530; 99285; J0360; J0692; J1160; J1650; J3370; J7030; J7040; J7050